=== PATIENT | male | born 1935 | race Asian ===

== ENCOUNTER 2022-08-17 14:41 | Inpatient (IN) | payer OTHER, MEDICAID ==
[~2022-08-17] VITALS: Ht 180.3 cm; Wt 54.4 kg
[2022-08-17 14:46] VITALS: BP 147/87
[2022-08-17 15:43] LABS: BASOPHILS % (AUTO) 0.1 % (0.0-2.0); EOSINOPHILS % (AUTO) 0.6 % (0.0-4.0); HEMATOCRIT 36.9 % (36-52); HEMOGLOBIN 12.4 g/dL (12.0-18.0); LYMPHOCYTES # (AUTO) 1.1 K/uL (2.0-11.5); LYMPHOCYTES % (AUTO) 19.3 % (20.5-51.1); MEAN CORPUSCULAR HEMOGLOBIN 30 pg (27-31); MEAN CORPUSCULAR HGB CONC 34 g/dL (33-37); MEAN CORPUSCULAR VOLUME 89.6 fL (80-94); MONOCYTES # (AUTO) 0.4 K/uL (0.8-1.0); MONOCYTES % (AUTO) 6.3 % (1.7-9.3); NEUTROPHILS # (AUTO) 4.1 K/uL (1.8-7.7); NEUTROPHILS % (AUTO) 73.7 % (42.2-75.2); PLATELET COUNT (AUTO) 133 K/uL (140-450); RED BLOOD CELL COUNT(AUTO) 4.12 MIL/uL (4.20-6.10); RED CELL DISTRIBUTION WIDTH 14.2 % (11.6-13.7); WHITE BLOOD COUNT (AUTO) 5.6 K/uL (4.8-10.8)
[2022-08-17] MEDS ORDERED: HALOPERIDOL IM 5 MG/ML VIAL IM ONE (15:55)
[2022-08-17 16:20] LABS: ALBUMIN 3.3 g/dL (3.4-5.0); ANION GAP 12.5 (8-16); ASPARTATE AMINOTRANSFERASE 25 U/L (15-37); CARBON DIOXIDE 29.6 mmol/L (21-32); CHLORIDE 102 mmol/L (98-107); CREATININE 0.9 mg/dL (0.6-1.3); GLUCOSE 140 mg/dL (74-106); POTASSIUM 4.1 mmol/L (3.5-5.1); SODIUM SERUM 140 mmol/L (136-145); TOTAL BILIRUBIN 0.3 mg/dL (0.0-1.0); UREA NITROGEN, BLOOD 24 mg/dL (7-18)
[2022-08-17 16:22] LABS: SALICYLATE < 2.8 mg/dL (2.8-20.0)
[2022-08-17] MEDS ORDERED: LORazepam 2 MG/ML VIAL IVP ONE (16:50)
[2022-08-17 18:01] LABS: APPEARANCE,URINE CLEAR (CLEAR); BILIRUBIN,URINE NEGATIVE (NEGATIVE); BLOOD, URINE NEGATIVE (NEGATIVE); COLOR,URINE YELLOW (YELLOW); LEUKOCYTE ESTERASE ,URINE NEGATIVE (NEGATIVE); NITRITE, URINE NEGATIVE (NEGATIVE); UGLUCOSE NEGATIVE (NEGATIVE)
[2022-08-17] MEDS ORDERED: DOCU-299 PO (18:48)
[2022-08-17] MEDS ORDERED: MIRT-92 PO (18:48)
[2022-08-17] MEDS ORDERED: TAMS0.4C96 PO (18:48)
[2022-08-17] MEDS ORDERED: DIVA250E1 PO (18:48)
[2022-08-17] MEDS ORDERED: MEMA5TAB PO (18:48)
[2022-08-17 19:20] LABS: BARBITURATE, URINE NEGATIVE ng/ml (NEG <=200); BENZODIAZEPINE, URINE POSITIVE ng/mL (NEG <=200); CANNABINOID, URINE NEGATIVE ng/mL (NEG <=50); COCAINE, URINE NEGATIVE ng/mL (NEG <=300); OPIATE, URINE NEGATIVE ng/mL (NEG <=2000); PHENCYCLIDINE SCREEN,URINE NEGATIVE ng/mL (NEG <=25)
[2022-08-18] MEDS ORDERED: HALOPERIDOL IM 5 MG/ML VIAL ONE (07:08)
[2022-08-18] MEDS ORDERED: HALOPERIDOL IM 5 MG/ML VIAL IM ONE (07:10)
[2022-08-18] MEDS ORDERED: LORazepam 2 MG/ML VIAL IVP ONE (07:10)
[2022-08-18 07:46] LABS: BASOPHILS % (AUTO) 0.4 % (0.0-2.0); EOSINOPHILS # (AUTO) 0.1 K/uL (0-0.4); EOSINOPHILS % (AUTO) 2.5 % (0.0-4.0); HEMOGLOBIN 12.1 g/dL (12.0-18.0); LYMPHOCYTES # (AUTO) 1.8 K/uL (2.0-11.5); LYMPHOCYTES % (AUTO) 45.5 % (20.5-51.1); MEAN CORPUSCULAR HEMOGLOBIN 30 pg (27-31); MEAN CORPUSCULAR HGB CONC 34 g/dL (33-37); MEAN CORPUSCULAR VOLUME 89.2 fL (80-94); MONOCYTES # (AUTO) 0.4 K/uL (0.8-1.0); NEUTROPHILS # (AUTO) 1.7 K/uL (1.8-7.7); NEUTROPHILS % (AUTO) 42.6 % (42.2-75.2); PLATELET COUNT (AUTO) 126 K/uL (140-450); RED BLOOD CELL COUNT(AUTO) 4.04 MIL/uL (4.20-6.10); RED CELL DISTRIBUTION WIDTH 14.2 % (11.6-13.7)
[2022-08-18 07:54] LABS: ANION GAP 12.3 (8-16); CARBON DIOXIDE 27.6 mmol/L (21-32); CHLORIDE 104 mmol/L (98-107); CREATININE 0.8 mg/dL (0.6-1.3); GLUCOSE 117 mg/dL (74-106); POTASSIUM 3.9 mmol/L (3.5-5.1); SODIUM SERUM 140 mmol/L (136-145); UREA NITROGEN, BLOOD 18 mg/dL (7-18)
[2022-08-18 12:00] VITALS: BP 126/66
[2022-08-18] MEDS: LORazepam 2 MG/ML VIAL IVP PRN (14:33)
[2022-08-18 16:00] VITALS: BP 133/61
[2022-08-18 20:00] VITALS: BP 109/64
[2022-08-19] VITALS: BP 134/80
[2022-08-19 04:00] VITALS: BP 147/81
[2022-08-19 08:00] VITALS: BP 148/82
[2022-08-19] MEDS: LORazepam 2 MG/ML VIAL IVP PRN (10:32)
[2022-08-19 12:00] VITALS: BP 128/73
[2022-08-19 16:00] VITALS: BP 126/77
[2022-08-19 20:00] VITALS: BP 142/93
[2022-08-20] VITALS (7 sets, daily range): BP systolic 107–150; BP diastolic 76–91
[2022-08-20] MEDS: LORazepam 2 MG/ML VIAL IVP PRN (02:50)
[2022-08-20] MEDS ORDERED: CEPH-588 PO (11:55)
[2022-08-21 04:00] VITALS: BP 107/68
[2022-08-21 08:00] VITALS: BP 126/72
[2022-08-21 20:00] VITALS: BP 146/95
[2022-08-22 04:00] VITALS: BP 102/66
[2022-08-22 08:00] VITALS: BP 141/94
== END 2022-08-22 17:25 | DRG 640 ==
LOC: MED 14:41 → MTU 19:23
DX: E86.0 Dehydration (principal); G93.41 Metabolic encephalopathy; E44.1 Mild protein-calorie malnutrition; J98.11 Atelectasis; Z68.1 Body mass index [BMI] 19.9 or less, adult; Z20.822 Contact with and (suspected) exposure to COVID-19; F20.9 Schizophrenia, unspecified; F03.90 Unspecified dementia, unspecified severity, without behavioral disturbance, psychotic disturbance, mood disturbance, and anxiety; N40.0 Benign prostatic hyperplasia without lower urinary tract symptoms
CPT/HCPCS: 36415; 70450; 71045; 80048; 80053; 80305; 81003; 82140; 84484; 85025; 93005; 96372; 96374; 99285; G0480; G0482; J1630; J2060; Q0092